=== PATIENT | female | born 1940 | race Caucasian/White ===

== ENCOUNTER → 2018-09-10 | Outpatient (CLI) | payer OTHER | LOC: M.ULTRA 16:00 | DX: M25.862 Other specified joint disorders, left knee (principal); I73.9 Peripheral vascular disease, unspecified; R60.0 Localized edema ==

== ENCOUNTER → 2018-10-02 | Outpatient (CLI) | payer OTHER | LOC: M.RAD 14:00 | DX: M81.0 Age-related osteoporosis without current pathological fracture (principal); M85.89 Other specified disorders of bone density and structure, multiple sites ==

== ENCOUNTER → 2019-01-21 | Outpatient (CLI) | payer OTHER | LOC: M.MRI 16:02 | DX: S83.232A Complex tear of medial meniscus, current injury, left knee, initial encounter (principal); S83.282A Other tear of lateral meniscus, current injury, left knee, initial encounter; M25.462 Effusion, left knee; M71.22 Synovial cyst of popliteal space [Baker], left knee; R60.0 Localized edema; X58.XXXA Exposure to other specified factors, initial encounter; Y93.89 Activity, other specified; Y92.89 Other specified places as the place of occurrence of the external cause; Y99.8 Other external cause status ==

== ENCOUNTER → 2019-06-07 | Outpatient (CLI) | payer OTHER | LOC: M.ULTRA 16:00 | DX: R60.0 Localized edema (principal); Z88.8 Allergy status to other drugs, medicaments and biological substances ==

== ENCOUNTER → 2019-12-25 | Outpatient (CLI) | payer OTHER | LOC: M.CT 11:21 | DX: R90.82 White matter disease, unspecified (principal); J44.9 Chronic obstructive pulmonary disease, unspecified; F32.9 Major depressive disorder, single episode, unspecified; E03.9 Hypothyroidism, unspecified; J98.4 Other disorders of lung; I67.89 Other cerebrovascular disease ==

== ENCOUNTER → 2020-01-02 | Outpatient (CLI) | payer OTHER | END | disposition home or self-care (01) | LOC: M.RAD 10:43 | DX: R13.12 Dysphagia, oropharyngeal phase (principal) ==